=== PATIENT | female | born 2000 | race Caucasian/White ===

== ENCOUNTER 2021-12-29 19:35 | Inpatient (IN) | payer OTHER, SELFPAY ==
[2021-12-29 20:38] VITALS: BMI 26.4
[2021-12-29 21:27] VITALS: BP 109/68; PULSE 78; RESP 16; TEMP 36.8; O2SAT 99
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
--- NOTE | 2021-12-30 | ECG_ITS ---
Test Reason : ekg Blood Pressure : / mmHG Vent. Rate : 055 BPM Atrial Rate : 055 BPM P-R Int : 142 ms QRS Dur : 078 ms QT Int : 440 ms P-R-T Axes : 035 049 036 degrees QTc Int : 420 ms Sinus bradycardia with sinus arrhythmia Otherwise normal ECG No previous ECGs available Referred By: Juany Monteiro Electronically Signed By:Cr Luevano
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
[2021-12-30 09:55] VITALS: BP 107/65; PULSE 97; RESP 18; TEMP 36.6; O2SAT 98
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
[2021-12-30 18:00] VITALS: BP 102/58; PULSE 76; RESP 16; TEMP 36.6; O2SAT 99
[2021-12-31 06:00] VITALS: BP 107/63; PULSE 75; TEMP 37.1; O2SAT 98
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
[2021-12-31 14:59] LABS: MANUAL DIFF FLAG NO
[2021-12-31 15:03] LABS: Basophils Percent Auto 0.2 % (0-2); Eosinophils Absolute Auto 0.1 X10*3/uL (0.0-0.4); Eosinophils Percent Auto 1.5 % (0-4); Hemoglobin 12.9 g/dl (12.0-16.0); Imm Gran Abs Auto 0.02 X10*3/uL (0.00-0.03); Imm Gran Pct Auto 0.2 % (0.0-0.4); Lymphocytes Absolute Auto 2.9 X10*3/uL (1.2-4.9); Lymphocytes Percent Auto 32.3 % (20-40); Mean Corpuscular HGB Conc 31.5 g/dl (31.0-35.0); Mean Corpuscular Hemoglobin 25.2 pg (27.0-33.0); Mean Corpuscular Volume 80.2 fL (80.0-98.0); Mean Platelet Volume 9.7 fL (9.4-12.3); Monocytes Absolute Auto 0.6 X10*3/uL (0.1-1.2); Monocytes Percent Auto 6.8 % (2-11); Neutrophils Absolute Auto 5.3 x10*3/uL (2.0-8.3); Platelet Count 327 X10*3/uL (160-400); Red Blood Count 5.11 X10*6/uL (4.20-5.50); White Blood Count 8.9 X10*3/uL (4.8-10.8)
[2021-12-31 18:37] VITALS: BP 110/61; PULSE 66; TEMP 36.3; O2SAT 98
[2022-01-01 06:00] VITALS: BP 90/58; PULSE 73; TEMP 36.2; O2SAT 99
[2022-01-01 07:54] LABS: Alanine Aminotransferase 19 U/L (0-31); Albumin Level 3.9 g/dL (3.5-5.0); Alkaline Phosphatase 75 U/L (39-117); Anion Gap 11 (12-20); Aspartate Amino Transferase 12 U/L (5-31); Bilirubin Direct 0.2 mg/dL (0.0-0.5); Bilirubin Total 0.6 mg/dL (0.0-1.0); Carbon Dioxide 25 mmol/L (22-29); Chloride 107 mmol/L (96-108); Potassium 4.4 mmol/L (3.3-5.1); Sodium 139 mmol/L (135-145); Total Protein 6.7 g/dL (6.5-8.0)
[2022-01-01 18:00] VITALS: BP 109/78; PULSE 94; RESP 16; TEMP 36.8; O2SAT 99
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
[2022-01-02 18:00] VITALS: BP 104/68; PULSE 88; RESP 16; TEMP 36.9
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
[2022-01-03 06:00] VITALS: BP 102/63; PULSE 77; RESP 18; TEMP 37; O2SAT 99
[2022-01-03 16:45] VITALS: BP 120/56; PULSE 58; TEMP 36.4; O2SAT 100
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
[2022-01-04 07:30] VITALS: BP 104/64; PULSE 72; RESP 16; TEMP 36.5; O2SAT 99
--- NOTE | 2022-01-04 10:35 | PC.NURSE ---
Patient alert and oriented in all spheres. Very pleasant this morning and noticably happy to be going home to her . No psych symptoms present. Being discharged on no medications. All belongings returned and reviewed with patient . Discharge instructions reviewed with patient. Appointments scheduled. Patient will be seen at [facility] and will need to call and schedule an appointment herself. This is where her infant is seen so she is familiar with the facility. Patient verbalized understanding of all discharge instructions.
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
== END 2022-01-04 12:10 | disposition home or self-care (01) | DRG 561 ==
PROVIDERS: Admitting Provider Psychiatry & Neurology Psychiatry; Visit Provider Clinical Nurse Specialist Psychiatric/Mental Health, Adult
DX: O99.893 Other specified diseases and conditions complicating puerperium (principal); F43.25 Adjustment disorder with mixed disturbance of emotions and conduct; Z87.891 Personal history of nicotine dependence
CPT/HCPCS: 36415; 80051; 80076; 85025; 93005